=== PATIENT | female | born 1965 | race Caucasian/White ===

== ENCOUNTER 2020-07-18 09:46 | Outpatient (CLI) | payer BC, SELFPAY ==
--- NOTE | ~2020-07-18 | MM_ITS ---
EXAMINATION: MM screening [facility] w pool HISTORY: Screening mammogram TECHNIQUE: Craniocaudal and mediolateral oblique 3-D tomosynthesis images were obtained and synthetic 2-D images were generated. CAD analysis was submitted and interpreted. COMPARISON 06/14/2019, 06/08/2018, 06/01/2017 bilateral digital screening mammogram examinations: No p rior mammogram is available for comparison at this institution. BREAST PARENCHYMAL COMPOSITION: The breasts are heterogeneously dense, which may obscure small masses . FINDINGS: There is no evidence of suspicious mass, calcification, or architectural distortion to sugg est malignancy in either breast. There has been no suspicious interval change. IMPRESSION: 1. No mammographic evidence of malignancy. 2. Recommend routine screening mammography in one year. BI-RADS Category 1: Negative Reviewed, dictated and finalized at location A. ING UPHOLSTERER
== END 2020-07-18 09:47 | disposition home or self-care (01) ==
PROVIDERS: PCP Family Medicine; Visit Provider Obstetrics & Gynecology
DX: Z12.31 Encounter for screening mammogram for malignant neoplasm of breast (principal)
CPT/HCPCS: 77063; 77067

== ENCOUNTER 2020-07-24 13:35 | Outpatient (CLI) | payer BC, SELFPAY ==
--- NOTE | ~2020-07-24 | US_ITS ---
US axilla RT 07/24/2020 14:16 Indication: Palpable right axillary lump Procedure: High-resolution ultrasound of the right axilla Comparison: Screening mammogram dated 07/18/2020 Findings: Normal heterogeneous echotexture without focal solid or cystic mass. Impression: 1: Normal limited ultrasound of the right axilla. BI-RADS CATEGORY 1 - NEGATIVE Reviewed, dictated and finalized at location A. HOUSE SUPERVISOR Impression: 1: Normal limited ultrasound of the right axilla. BI-RADS CATEGORY 1 - NEGATIVE
== END 2020-07-24 13:36 | disposition home or self-care (01) ==
PROVIDERS: PCP Family Medicine; Visit Provider Advanced Practice Midwife
DX: N63.31 Unspecified lump in axillary tail of the right breast (principal)
CPT/HCPCS: 76882

== ENCOUNTER → 2020-12-24 14:54 | Outpatient (CLI) | payer BC, SELFPAY ==
--- NOTE | ~2020-12-24 | CT_ITS ---
EXAMINATION: CT abdomen wo con EXAM DATE: 12/24/2020 15:15 INDICATION: Hernia of abdomen wall w obstruction wo gangrene. Abdominal pain above the umbilicus and spasms. TECHNIQUE: Spiral CT of the abdomen was performed without contrast. Axial, coronal and sagittal charlotte ges of the abdomen were reviewed. The dose-length product (DLP) for this examination was 124.91 mGy- cm. The exposure was tailored according to patient size (auto mA exposure control), and iterative re construction (ASIR) was used as additional dose reduction technique. There is no prior study for man perry. FINDINGS: The liver, spleen, adrenal glands and pancreas are unremarkable. Gallbladder is unremarkab le. No biliary obstruction. There is no nephrolithiasis or hydronephrosis. There is no retroperi toneal lymphadenopathy. No abdominal wall defect identified (abdominal wall was imaged from the christine st to about 5 cm below the umbilicus). The stomach and small bowel are unremarkable. There is moderate amount of colonic stool. No free i ntraperitoneal gas. The heart is normal in size. There are no pericardial or pleural effusions. T he lung bases are unremarkable. Mild lumbar dextroscoliosis. IMPRESSION: 1. No hernia or acute abdominal findings. Reviewed, dictated and finalized at location A.
== END ==
PROVIDERS: PCP Family Medicine; Visit Provider Family Medicine
DX: K43.6 Other and unspecified ventral hernia with obstruction, without gangrene (principal)
CPT/HCPCS: 74150

== ENCOUNTER 2021-03-10 09:10 | Outpatient (CLI) | payer BC, SELFPAY ==
--- NOTE | 2021-03-10 11:30 | NEURO_ITS ---
Impression: # Complains of right upper extremity forearm pain waking her up at night. # Early right Carpal Tunnel Syndrome involving sensory more than motor component. # Normal needle/EMG exam. # Clinical correlation recommended. Nerve Conduction Studies Anti Sensory Summary Table Stim Site NR Peak (ms) P-T Amp (?V) Site1 Site2 Delta-P (ms) Dist (cm) Oleg (m/s) Right Median Anti Sensory (2-3nd Digit) Wrist 3.8 78.2 Wrist 2-3nd Digit 3.8 14.0 37 Wrist 3.9 57.8 Wrist 2-3nd Digit 3.8 14.0 37 Right Radial Anti Sensory (Base 1st Digit) Wrist 2.2 24.2 Wrist Base 1st Digit 2.2 0.0 Right Ulnar Anti Sensory (5th Digit) Wrist 1.9 19.7 Wrist 5th Digit 1.9 14.0 74 Motor Summary Table Stim Site NR Onset (ms) O-P Amp (mV) Site1 Site2 Delta-0 (ms) Dist (cm) Oleg (m/s) Right Median Motor (Abd Poll Brev) Wrist 3.7 8.1 Elbow Wrist 4.1 22.0 54 Elbow 7.8 6.0 Right Ulnar Motor (Abd Dig Minimi) Wrist 2.7 4.7 A Elbow Wrist 4.3 25.0 58 A Elbow 7.0 4.2 F Wave Studies NR F-Lat (ms) L-R F-Lat (ms) Right Median (Mrkrs) (Abd Poll Brev) 25.54 Right Ulnar (Mrkrs) (Abd Dig Min) 24.93 EMG Side Muscle Nerve Root Ins Act Fibs Amp Dur Recrt Comment Right 1stDorInt Ulnar C8-T1 Nml Nml Nml Nml Nml Right Ext Indicis Radial (Post Int) C7-8 Nml Nml Nml Nml Nml Right Ext Digitorum Radial (Post Int) C7-8 Nml Nml Nml Nml Nml Right BrachioRad Radial C5-6 Nml Nml Nml Nml Nml Right PronatorTeres Median C6-7 Nml Nml Nml Nml Nml Right Abd Poll Brev Median C8-T1 Nml Nml Nml Nml Nml MTDD
== END 2021-03-10 09:11 | disposition home or self-care (01) ==
PROVIDERS: PCP Family Medicine; Visit Provider Family Medicine
DX: G56.01 Carpal tunnel syndrome, right upper limb (principal)
CPT/HCPCS: 95886; 95909

== ENCOUNTER 2021-07-20 07:58 | Outpatient (CLI) | payer BC, SELFPAY ==
--- NOTE | ~2021-07-20 | MM_ITS ---
EXAMINATION: MM screening [facility] BI w pool HISTORY: Screening mammogram TECHNIQUE: Craniocaudal and mediolateral oblique 3-D tomosynthesis images were obtained and synthetic 2-D images were generated. CAD analysis was submitted and interpreted. COMPARISON: 07/18/2020, 06/14/2019, 06/08/2018 BREAST PARENCHYMAL COMPOSITION: The breasts are heterogeneously dense, which may obscure small masses . FINDINGS: There is no evidence of suspicious mass, calcification, or architectural distortion to sugg est malignancy in either breast. There has been no suspicious interval change. IMPRESSION: 1. No mammographic evidence of malignancy. 2. Recommend routine screening mammography in one year. BI-RADS Category 1: Negative Reviewed, dictated and finalized at location A. ATED MOTORMAN
== END 2021-07-20 07:59 | disposition home or self-care (01) ==
LOC: ANHIMG 08:01
PROVIDERS: PCP Family Medicine; Visit Provider Family Medicine
DX: Z12.31 Encounter for screening mammogram for malignant neoplasm of breast (principal)
CPT/HCPCS: 77063; 77067

== ENCOUNTER → 2021-10-07 12:27 | Outpatient (CLI) | payer BC, SELFPAY ==
--- NOTE | ~2021-10-07 | DEXA_ITS ---
Bone Density Report Name: ANA LAURA MATHUR Age: 56 Sex: Female Ethnicity: White Date of : 1965 Indication: postmenopausal; screening for osteoporosis; Referring Provider: Armida Casas Study: Bone densitometry was performed. Exam Date: October 07, 2021 Accession number: [id number] Bone Density: Region BMD T-score Z-score Classification AP Spine (L1-L4) 0.907 -1.3 -0.2 Osteopenia Femoral Neck (Left) 0.662 -1.7 -0.6 Osteopenia Total Hip (Left) 0.680 -2.2 -1.5 Osteopenia Femoral Neck (Right) 0.582 -2.4 -1.3 Osteopenia Total Hip (Right) 0.727 -1.8 -1.1 Osteopenia Total Hip Mean 0.704 -2.0 -1.3 Osteopenia World Health Organization criteria for BMD impression classify patients as: Normal (T-score at or above -1.0), Osteopenia (T-score between -1.0 and -2.5), or Osteoporosis (T-score at or below -2.5). 10-year Fracture Risk: FRAX not reported because: Treated for osteoporosis Clinical Information Provided by Patient: Is being treated for osteoporosis Has used the following medications: HRT (i.e. estrogen/hormone therapy), Vitamin D Patient maximum height was 61 Menopause Age: 50 Drinks caffeinated beverages Onset of menses at age 18 Number of children 3 Impression: The patient has low bone mass, based on the Right Femoral Neck T-score. Discussion: It is important to ask patients whether they are taking their medications and to encourage continued and appropriate compliance with their osteoporosis therapies to reduce fracture risk. It is also important to review their risk factors and encourage appropriate calcium and vitamin D intakes, exercise, fall prevention and other lifestyle measures. Follow-Up: Consider a repeat BMD and Vertebral Fracture Assessment (VFA) exam in 2 years or sooner if medically necessary, to reassess this patient's status. Reported by: ISIAH on 10/07/2021 12:42:00 PM. Reviewed, dictated and finalized at location AReynaldo GARCIA
== END ==
PROVIDERS: PCP Family Medicine; Visit Provider Advanced Practice Midwife
DX: M81.0 Age-related osteoporosis without current pathological fracture (principal); M85.89 Other specified disorders of bone density and structure, multiple sites
CPT/HCPCS: 77080

== ENCOUNTER → 2022-09-27 09:02 | Outpatient (CLI) | payer BC, SELFPAY ==
--- NOTE | ~2022-09-27 | MM_ITS ---
EXAMINATION: MM screening [facility] BI w pool HISTORY: Screening mammogram TECHNIQUE: Craniocaudal and mediolateral oblique 3-D tomosynthesis images were obtained and synthetic 2-D images were generated. CAD analysis was submitted and interpreted. COMPARISON: 07/16/2021, 07/18/2020, 06/14/2019 bilateral screening mammogram examinations BREAST PARENCHYMAL COMPOSITION: The breasts are extremely dense, which lowers the sensitivity of mamm ography. FINDINGS: There is no evidence of suspicious mass, calcification, or architectural distortion to sugg est malignancy in either breast. There has been no suspicious interval change. IMPRESSION: 1. No mammographic evidence of malignancy. 2. Recommend routine screening mammography in one year. BI-RADS Category 1: Negative Reviewed, dictated and finalized at location A.
== END ==
PROVIDERS: PCP Family Medicine; Visit Provider Nurse Practitioner Obstetrics & Gynecology
DX: Z12.31 Encounter for screening mammogram for malignant neoplasm of breast (principal)
CPT/HCPCS: 77063; 77067

== ENCOUNTER 2023-12-16 12:04 | Outpatient (CLI) | payer BC, SELFPAY ==
--- NOTE | ~2023-12-16 | MM_ITS ---
EXAMINATION: MM screening [facility] BI w pool HISTORY: Screening TECHNIQUE: Craniocaudal and mediolateral oblique 3-D tomosynthesis images were obtained and synthetic 2-D images were generated. CAD analysis was submitted and interpreted. COMPARISON: Comparison to multiple prior studies sequentially, with oldest reviewed study dated 11/2016. BREAST PARENCHYMAL COMPOSITION: Dense: The breasts are extremely dense, which lowers the sensitivity of mammography. FINDINGS: There is no evidence of suspicious mass, calcification, or architectural distortion to sugg est malignancy in either breast. There has been no suspicious interval change. IMPRESSION: 1. No mammographic evidence of malignancy. 2. Recommend routine screening mammography in one year. BI-RADS Category 1: Negative Reviewed, dictated and finalized at location B.
== END 2023-12-16 12:05 ==
LOC: MICIMG 12:05
PROVIDERS: PCP Nurse Practitioner Obstetrics & Gynecology; Visit Provider Nurse Practitioner Obstetrics & Gynecology
DX: Z12.31 Encounter for screening mammogram for malignant neoplasm of breast (principal)
CPT/HCPCS: 77063; 77067

== ENCOUNTER 2024-06-18 14:57 | Outpatient (CLI) | payer BC, SELFPAY ==
--- NOTE | ~2024-06-18 | US_ITS ---
Right axillary ULTRASOUND Ordering provider: Eufemia Mcclure, MANAGER OF CREATIVE SERVICES History: . Mass of axilla . Comparison: None. FINDINGS/impression: No definite abnormality seen. Reviewed, dictated and finalized at location A. WELDER
== END 2024-06-18 14:58 | disposition home or self-care (01) ==
LOC: MICIMG 14:57
PROVIDERS: PCP Nurse Practitioner Obstetrics & Gynecology; Visit Provider Nurse Practitioner Family
DX: R22.2 Localized swelling, mass and lump, trunk (principal)
CPT/HCPCS: 76882

== ENCOUNTER 2024-06-21 14:32 | Outpatient (CLI) | payer BC, SELFPAY ==
--- NOTE | ~2024-06-21 | CT_ITS ---
EXAMINATION: CT abdomen wo con DATE: 06/21/2024 15:24 INDICATION: Intra-abdominal and pelvic swelling. TECHNIQUE: Computed tomography (CT) of the abdomen was performed without intravenous contrast. Automa irish exposure control and iterative reconstruction technique were employed. The dose-length product wa s 112.18 mGy-cm. COMPARISON: CT abdomen 12/24/2020 FINDINGS: The visualized portions of the lung bases demonstrate mild atelectasis. No pleural effusion . The heart size is normal. No pericardial effusion. The liver, gallbladder, spleen, pancreas, adrena l glands, and kidneys are normal. There is no urolithiasis. There are no dilated loops of bowel. Ther e are no pathologically enlarged lymph nodes. There is no ascites. There is 13 degrees dextroscoliosi s of thoracolumbar spine. There is severe lower lumbar spondylosis. IMPRESSION: 1. No etiology for the patient's symptoms. Reviewed, dictated and finalized at location A. GER ASSURANCE
== END 2024-06-21 14:33 | disposition home or self-care (01) ==
PROVIDERS: PCP Nurse Practitioner Family; Visit Provider Nurse Practitioner Family
DX: R19.00 Intra-abdominal and pelvic swelling, mass and lump, unspecified site (principal)
CPT/HCPCS: 74150

== ENCOUNTER 2024-10-16 12:44 | Outpatient (CLI) | payer BC, SELFPAY ==
--- NOTE | ~2024-10-16 | DEXA_ITS ---
Bone Density Report Name: ANA LAURA MATHUR Age: 59 Sex: Female Ethnicity: White Date of : 1965 Indication: postmenopausal; screening for osteoporosis; height loss; Referring Provider: SOULEYMANE HIGGINBOTHAM Study: Bone densitometry was performed. Exam Date: October 16, 2024 Accession number: [id number] Bone Density: Region BMD T-score Z-score Classification AP Spine(L1-L4) 0.925 -1.1 0.2 Osteopenia Femoral Neck (Left) 0.647 -1.8 -0.6 Osteopenia Total Hip (Left) 0.675 -2.2 -1.3 Osteopenia Femoral Neck (Right) 0.562 -2.6 -1.4 Osteoporosis Total Hip (Right) 0.713 -1.9 -1.0 Osteopenia Total Hip Mean 0.694 -2.1 -1.2 Osteopenia World Health Organization criteria for BMD impression classify patients as: Normal (T-score at or above -1.0), Osteopenia (T-score between -1.0 and -2.5), or Osteoporosis (T-score at or below -2.5). 10-year Fracture Risk: FRAX not reported because: Some T-score for Spine Total or Hip Total or Femoral Neck at or below -2.5 Clinical Information Provided by Patient: Has used the following medications: HRT (i.e. estrogen/hormone therapy), Vitamin D, Calcium Patient maximum height was 62 Menopause Age: 46 Drinks caffeinated beverages Onset of menses at age 18 Number of children 3 Impression: The patient has osteoporosis, based on the Right Femoral Neck T-score. Discussion: INCREASED RISK OF FRACTURE. BONE DENSITY IS UNDESIRABLY LOW AT ONE OR MORE SKELETAL SITES, CONSISTENT WITH POSTMENOPAUSAL OSTEOPOROSIS. This patient's lowest T-score meets the World Health Organization's (WHO) criteria for osteoporosis at one or more sites (T-score -2.5 or below). In untreated patients, the risk of osteoporotic fracture increases approximately two-fold for each 1.0 SD decrease in T-score. Low bone density is not the only risk factor for fracture; also consider factors such as patient's age, frailty or poor health, risk of falling, risk of injury, previous osteoporotic fracture, family history of osteoporosis, cigarette smoking, low body weight, etc. Not everyone with low bone mineral density has osteoporosis; osteomalacia and other metabolic bone disorders should also be considered. Patients who have osteoporosis should be evaluated for specific diseases and conditions (secondary causes) that may cause or contribute to bone loss. The [place] [employer] Clinical Endocrinologists (AACE) and National Osteoporosis Foundation (NOF) recommend pharmacologic intervention for all postmenopausal women whose T-score is in this range. The patient should follow a healthful lifestyle (good nutrition with adequate calcium and vitamin D, and appropriate weight-bearing exercise). Follow-Up: Consider a repeat BMD and Vertebral Fracture Assessment (VFA) exam in 2 years or sooner if medically necessary, to reassess this patient's status. Reported by: IRMA on 10/16/2024 1:30:00 PM. Reviewed, dictated and finalized at location AReynaldo GARCIA
--- OUTSIDE RECORDS SUMMARY | 2024-10-16 14:14 | XMS_ITS | Referral Summary ---
Author Organization [facility] Address [facility] [place] [address] Care Team Providers Care Mutual Fund Accountant Name Role Phone Irma Lee MD Primary Care Provider + Irma Lee MD Unavailable Allergies No known active allergies Medications influenza quadrivalent [id number] (Flucelvax Quad , PF,) 60 mcg (15 mcg x 4)/0.5 mL syringe Flucelvax Quad [id number] (PF) 60 mcg (15 mcg x 4)/0.5 mL IM syringe Active estrogens, conjugated,-medro xyPROGESTERone (PREMPRO) 0.3-1.5 mg per tablet Prempro 0.3 mg-1.5 mg tablet Active Active Problems No known active problems Social History Tobacco Use Types Packs/Day Years Used Date Smoking Tobacco: Never Personal Safety Answer Date Recorded Getting School Help Needed Not on file 09/10 Comments Unknown Sex and Gender Information Value Date Recorded Sex Assigned at Not on file 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 Gender Identity Not on file Sexual Orientation Not on file Last Filed Vital Signs Vital Sign Reading Time Taken Comments Blood Pressure - - Pulse - - Temperature - - Respiratory Rate - - Oxygen Saturation - - Inhaled Oxygen Concentration - - Weight 47.6 kg (105 lb) 09/22/2020 9:19 AM CDT Height 157.5 cm (5' 2 ) 09/22/2020 9:19 AM CDT Body Mass Index 19.2 09/22/2020 9:19 AM CDT Plan of Treatment Not on file Insurance [email or web address] OOS Care Teams Mutual Fund Accountant Relationship Specialty Start Date End Date Irma Lee MD [address] [place] [address] PCP - General Family Medicine 07/28/20 Irma Lee MD [address] [place] [address] Family Medicine 07/28/20
--- OUTSIDE RECORDS SUMMARY | 2024-10-16 14:15 | XMS_ITS | Data Portability ---
Author Organization [facility] Address [address] [place] [address] Care Team Providers Care Associate Professor Of Automation Name Role Phone XIOMARA MIRANDA Referring Provider Assessment Encounter Date Assessment Date Assessment LastModified by Organization Details LastModified Time 09/27/2022 09/27/2022 Annual gynecological exam performed. Patient will come back in a year unless there are new symptoms. Not available 09/27/2022 09:44:36 04/13/2024 04/13/2024 Annual gynecological exam performed. Patient will come back in a year unless there are new symptoms. [email or web address] Not available 04/13/2024 09:45:27 Plan of Treatment Reminders Order Date Submit Date Provider Last Modified By Organization Details Last Modified Time Details Appointments None recorded. Lab hsv (1+2) igm, serum 2021 [facility] (Lab), [address], [place], [address], 17:07:24 hsv-1 igg Ab, serum 2021 [facility] (Lab), [address], [place], [address], 17:07:22 hsv-2 igg Ab, serum 2021 [facility] (Lab), [address], [place], [address], 12/11/202 2 17:07:23 hbcab (hepatitis B core Ab) igm, serum 2021 [facility] (Lab), [address], [place], [address], 2 17:07:23 HBsAg (hepatitis B surface Ag), serum 2021 [facility] (Lab), [address], [place], [address], 17:07:21 hepatitis C virus Ab, serum 2021 [facility] (Lab), [address], [place], [address], 17:07:21 unlisted lab - HIV 1/2 antigen/ant ibody, reflex confirmatio n 2021 [facility] (Lab), [address], [place], [address], 17:07:22 RPR (rapid plasma reagin), serum 2021 [facility] (Lab), [address], [place], [address], 17:07:23 Referral None recorded. Procedures None recorded. Surgeries None recorded. Imaging DEXA, axial skeleton + vertebral fracture assessment 2023 024 [facility], [address], [place], [address], 4 04:06:08 MAMMO, screening, bilateral 2022 023 [facility], [address], [place], [address], 3 18:39:07 DEXA, axial skeleton + vertebral fracture assessment 2022 023 [facility] , [address], [address] [place] [address], [place], [address], 3 05:01:41 Medication Orders estradiol 0.5 mg tablet 2022 023 [facility] #12523, [address], [place], [place], [id number], 3 09:56:23 Prometrium 100 mg capsule 2022 023 [facility] #21120, [address], [place], [place], [id number], 3 09:56:24 Valtrex 1 gram tablet 2021 022 [email or web address] [facility] #75558, [address], [place], [place], [id number], 4 16:45:14 estradiol 0.5 mg tablet 2021 022 [facility] #15475, [address], [place], [place], [id number], 2 10:00:15 Prometrium 100 mg capsule 2021 022 [facility] #16591, [address], [place], [place], [id number], 2 10:00:16 Premarin 0.625 mg/gram vaginal cream 2021 022 [facility] #89399, [address], [place], [id number], 3 09:45:14 estradiol 0.5 mg tablet 2021 022 [facility] #44233, [address], [place], [id number], 10:31:28 Prometrium 100 mg capsule 2021 022 [facility] #35201, [address], [place], [id number], 10:31:27 Patient TargetsNo targets recorded. Patient InstructionsNo instructions recorded. Reason for Referral None Reported. Results Created Date Observation Date Name Description Value Unit Range Abnormal Flag Note LastModifiedBy Organization Detail LastModifiedTime 11/05/19 22 11/04/2021 TSH, REFLE X FREE T4 TSH 0.52 uIU/m L 0.30-5 .33 Not Available [facility] (Lab) [address], [place], [address], 11/05/2021 03:44:52 11/05/19 22 11/04/2021 PHOSP HORUS phosphorus 3.8 mg/dL 2.5-5. 0 Not Available [facility] (Lab) [address] [place], [address], 11/05/2021 03:44:53 11/05/19 22 11/04/2021 CMP(C OMPRE HENSI VE METAB OLIC PANEL ) sodium 141 mmol/ L 133-14 6 Not Available [facility] (Lab) [address] [place], [address], 11/05/2021 03:44:53 11/05/19 22 11/04/2021 CMP(C OMPRE HENSI VE METAB OLIC PANEL ) potassium 4.3 mmol/ L 3.5-5. 1 Not Available [facility] (Lab) [address] [place], [address], 11/05/2021 03:44:53 11/05/19 22 11/04/2021 CMP(C OMPRE HENSI VE METAB OLIC PANEL ) chloride 104 mmol/ L 98-107 Not Available [facility] (Lab) [address], [place], [address], 11/05/2021 03:44:53 11/05/19 22 11/04/2021 CMP(C OMPRE HENSI VE METAB OLIC PANEL ) carbon dioxide 29 mmol/ L 21-31 Not Available [facility] (Lab) [address], [place], [address], 11/05/2021 03:44:53 11/05/19 22 11/04/2021 CMP(C OMPRE HENSI VE METAB OLIC PANEL ) anion gap 8 mmol/ L 4-13 Not Available [facility] (Lab) [address], [place], [address], 11/05/2021 03:44:53 11/05/19 22 11/04/2021 CMP(C OMPRE HENSI VE METAB OLIC PANEL ) blood urea nitrogen 15 mg/dL 7-[address] [facility] (Lab) [address], [place], [address], 11/05/2021 03:44:53 11/05/19 22 11/04/2021 CMP(C OMPRE HENSI VE METAB OLIC PANEL ) creatinine 0.89 mg/dL 0.60-1 .30 Not Available [facility] (Lab) [address], [place], [address], 11/05/2021 03:44:53 11/05/19 22 11/04/2021 CMP(C OMPRE HENSI VE METAB OLIC PANEL ) egfrcr (CKD-epi 2020) 77 mL/mi n/1.7 3_m2 >=60 Not Available [facility] (Lab) [address] [place], [address], 11/05/2021 03:44:53 11/05/19 22 11/04/2021 CMP(C OMPRE HENSI VE METAB OLIC PANEL ) calcium 9.5 mg/dL 8.3-10 .5 Not Available [facility] (Lab) [address] [place], [address], 11/05/2021 03:44:53 11/05/19 22 11/04/2021 CMP(C OMPRE HENSI VE METAB OLIC PANEL ) glucose 89 mg/dL 70-100 Not Available [facility] (Lab) [address], [place], [address], 11/05/2021 03:44:53 11/05/19 22 11/04/2021 CMP(C OMPRE HENSI VE METAB OLIC PANEL ) protein, total 6.8 g/dL 6.4-8. 3 Not Available [facility] (Lab) [address], [place], [address], 11/05/2021 03:44:53 11/05/19 22 11/04/2021 CMP(C OMPRE HENSI VE METAB OLIC PANEL ) albumin 4.0 g/dL 3.5-5. 0 Not Available [facility] (Lab) [address], [place], [address], 11/05/2021 03:44:53 11/05/19 22 11/04/2021 CMP(C OMPRE HENSI VE METAB OLIC PANEL ) ALT 13 units /L 9-43 Not Available [facility] (Lab) [address], [place], [address], 11/05/2021 03:44:53 11/05/19 22 11/04/2021 CMP(C OMPRE HENSI VE METAB OLIC PANEL ) alkaline phosphatase 103 units /L 34-104 Not Available [facility] (Lab) [address], [place], [address], 11/05/2021 03:44:53 11/05/19 22 11/04/2021 CMP(C OMPRE HENSI VE METAB OLIC PANEL ) AST 19 units /L 13-39 Not Available [facility] (Lab) [address] [place], [address], 11/05/2021 03:44:53 11/05/19 22 11/04/2021 CMP(C OMPRE HENSI VE METAB OLIC PANEL ) bilirubin, total 0.6 mg/dL 0.2-1. 2 Not Available [facility] (Lab) [address], [place], [address], 11/05/2021 03:44:53 11/05/19 22 11/04/2021 CBC W/DIF F WBC 6.0 10'3/ uL 3.6-10 .2 Not Available [facility] (Lab) [address], [place], [address], 11/05/2021 03:44:54 11/05/19 22 11/04/2021 CBC W/DIF F RBC 4.10 10'6/ uL (based on docume nted legal sex) 4.10-5 .30 Not Available [facility] (Lab) [address], [place], [address], 11/05/2021 03:44:54 11/05/19 22 11/04/2021 CBC W/DIF F HGB 12.9 g/dL (based on docume nted legal sex) 11.9-1 5.8 Not Available [facility] (Lab) [address], [place], [address], 11/05/2021 03:44:54 11/05/19 22 11/04/2021 CBC W/DIF F HCT 38.6 % (based on docume nted legal sex) 37.4-4 8.3 Not Available [facility] (Lab) [address], [place], [address], 11/05/2021 03:44:54 11/05/19 22 11/04/2021 CBC W/DIF F MCV 95.0 fL 82.0-9 9.0 Not Available [facility] (Lab) [address], [place], [address], 11/05/2021 03:44:54 11/05/19 22 11/04/2021 CBC W/DIF F MCH 32.0 pg 27.0-3 3.0 Not Available [facility] (Lab) [address], [place], [address], 11/05/2021 03:44:54 11/05/19 22 11/04/2021 CBC W/DIF F MCHC 33.0 g/dL 32.0-3 6.0 Not Available [facility] (Lab) [address], [place], [address], 11/05/2021 03:44:54 11/05/19 22 11/04/2021 CBC W/DIF F RDW 11.0 % 11.0-1 5.0 Not Available [facility] (Lab) [address], [place], [address], 11/05/2021 03:44:54 11/05/19 22 11/04/2021 CBC W/DIF F plt 219 10'3/ uL 150-45 0 Not Available [facility] (Lab) [address], [place], [address], 11/05/2021 03:44:54 11/05/19 22 11/04/2021 CBC W/DIF F MPV 12.0 fL 9.8-12 .7 Not Available [facility] (Lab) [address], [place], [address], 11/05/2021 03:44:54 11/05/19 22 11/04/2021 CBC W/DIF F NRBC's 0.00 % 0 Not Available [facility] (Lab) [address], [place], [address], 11/05/2021 03:44:54 11/05/19 22 11/04/2021 CBC W/DIF F absolute NRBCs 0.0 10'3/ uL 0 Not Available [facility] (Lab) [address] [place], [address], 11/05/2021 03:44:54 11/05/19 22 11/04/2021 CBC W/DIF F neutrophils 64.0 % 37.0-7 2.0 Not Available [facility] (Lab) [address] , [place], [address], 11/05/2021 03:44:54 11/05/19 22 11/04/2021 CBC W/DIF F lymphocytes 26.0 % 16.0-4 8.0 Not Available [facility] (Lab) [address] [place], [address], 11/05/2021 03:44:54 11/05/19 22 11/04/2021 CBC W/DIF F monocytes 8.0 % 4.0-14 .0 Not Available [facility] (Lab) [address], [place], [address], 11/05/2021 03:44:54 11/05/19 22 11/04/2021 CBC W/DIF F eosinophils 1.0 % 0.0-9. 0 Not Available [facility] (Lab) [address], [place], [address], 11/05/2021 03:44:54 11/05/19 22 11/04/2021 CBC W/DIF F basophils 1.0 % 0.0-2. 0 Not Available [facility] (Lab) [address], [place], [address], 11/05/2021 03:44:54 11/05/19 22 11/04/2021 CBC W/DIF F immature granulocytes 0.0 % no define d refere nce range Not Available [facility] (Lab) [address], [place], [address], 11/05/2021 03:44:54 11/05/19 22 11/04/2021 CBC W/DIF F absolute neutrophils 3.8 10'3/ uL 1.1-6. 0 Not Available [facility] (Lab) [address] [place], [address], 11/05/2021 03:44:54 11/05/19 22 11/04/2021 CBC W/DIF F absolute lymphocytes 1.5 10'3/ uL 0.7-3. 4 Not Available [facility] (Lab) [address], [place], [address], 11/05/2021 03:44:54 11/05/19 22 11/04/2021 CBC W/DIF F absolute monocytes 0.5 10'3/ uL 0.3-1. 0 Not Available [facility] (Lab) [address], [place], [address], 11/05/2021 03:44:54 11/05/19 22 11/04/2021 CBC W/DIF F absolute eosinophils 0.1 10'3/ uL 0.0-0. 6 Not Available [facility] (Lab) [address], [place], [address], 11/05/2021 03:44:54 11/05/19 22 11/04/2021 CBC W/DIF F absolute basophils 0.1 10'3/ uL 0.0-0. 1 Not Available [facility] (Lab) [address] [place], [address], 11/05/2021 03:44:54 11/05/19 22 11/04/2021 CBC W/DIF F absolute immature granulocytes 0.00 10'3/ uL 0.00-0 .10 2021 2:21 AM: P indic ates parti al resul ts on a panel have been relea sed. Addit ional resul ts will follo w. 2021 2:21 AM: This resul t has been final verif ied. No addit ional or cary ed resul ts are expec camelia. Not Available [facility] (Lab) [address] [place], [address], 11/05/2021 03:44:54 11/05/19 22 11/04/2021 VITAM IN D, 25-OH (TOTA L D2/D3 ) vitamin D, 25-hydroxy, total 53.3 NG/mL 30-80 NOTE: Defic iency : <20 ng/mL Insuf ficie ncy: 20-29 ng/mL Optim um Level : 30-80 ng/mL Possi ble Toxic ity: >80 ng/mL Most patie nts with toxic ity have level s >150 ng/mL . Not Available [facility] (Lab) [address], [place], [address], 11/05/2021 03:44:54 06/01/20 22 06/01/2022 HEPAT ITIS B SURFA CE ANTIG EN hepatitis B surface antigen Non-re active non-re active This assay was perfo rmed using [employer] ratio n reage nts and test kits. Value s obtai [place] with other assay metho ds or kits canno t be used inter cary eably . Not Available [facility] (Lab) [address], [place], [address], 06/06/2022 17:07:21 06/01/20 22 06/01/2022 HEPAT ITIS C ANTIB EVELIN SCREE N, REFLE X TO CONFI RMATI ON hepatitis C antibody Non-re active non-re active Antib odies to HCV Not Detec camelia, does not exclu de the possi bilit y of expos ure to HCV. Not Available [facility] (Lab) [address], [place], [address], 06/06/2022 17:07:21 06/01/20 22 06/01/2022 HIV 1/2 ANTIG EN/AN TIBOD Y, REFLE X CONFI RMATI ON HIV antigen/anti body Nonrea ctive nonrea ctive HIV-1 antig en and HIV-1 /HIV- 2 antib odies were not detec camelia. No labor atory evide nce of HIV infec tion. Not Available [facility] (Lab) [address], [place], [address], 06/06/2022 17:07:22 06/01/20 22 06/01/2022 HERPE S SMPLE X VIRUS TYPE 1 SPECI FIC AB, IGG herpes simplex virus 1 IgG Positi ve negati ve abnormal Not Available [facility] (Lab) [address], [place], [address], 06/06/2022 17:07:22 06/01/20 22 06/01/2022 HERPE S SMPLE X VIRUS TYPE 1 SPECI FIC AB, IGG herpes simplex virus 1 IgG, quant 5.4 ai 0.0-0. 8 high Not Available [facility] (Lab) [address], [place], [address], 06/06/2022 17:07:22 06/01/20 22 06/01/2022 HERPE S SIMPL EX VIRUS TYPE 2 SPECI FIC AB, IGG herpes simplex virus 2 IgG Negati ve negati ve Not Available [facility] (Lab) [address], [place], [address], 06/06/2022 17:07:23 06/01/20 22 06/01/2022 HERPE S SIMPL EX VIRUS TYPE 2 SPECI FIC AB, IGG herpes simples virus 2 IgG, quant <0.2 ai 0.0-0. 8 Not Available [facility] (Lab) [address], [place], [address], 06/06/2022 17:07:23 06/01/20 22 06/01/2022 RPR SCREE N/REF NIA TITER /FTA RPR screen Nonrea ctive nonrea ctive Not Available [facility] (Lab) [address], [place], [address], 06/06/2022 17:07:23 06/01/20 22 06/01/2022 HEPAT ITIS B CORE, IGM hepatitis B core IgM antibody Negati ve negati ve Not Available [facility] (Lab) [address] [place], [address], 06/06/2022 17:07:23 06/01/20 22 06/01/2022 HERPE S SIMPL EX VIRUS , 1 AND 2 IGM, IFA hsv 1 IgM screen NEGATI VE Not Available [facility] (Lab) [address], [place], [address], 06/06/2022 17:07:24 06/01/20 22 06/01/2022 HERPE S SIMPL EX VIRUS , 1 AND 2 IGM, IFA hsv 2 IgM screen NEGATI VE REFER ENCE RANGE : NEGAT SHEMAR HSV IgM is detec table in serum from >90% of patie nts with prima ry HSV infec tion. Howev er, HSV IgM canno t be relia maddie used to diagn ose acute /rece nt infec tion as it is also found in 30% of patie nts with react ivate d HSV. This test may not disti nguis h betwe en HSV-1 IgM and HSV-2 IgM due to cross -reac tivit y. To diagn ose acute genit al or mucos al HSV infec tion, direc t detec tion from a lesio n by cultu re or sera michaels ds is prefe rred. HSV IgM posit ivity shoul d be confi rmed by HSV-1 /2 type- speci fic IgG testi ng. This test was devel oped and its fei tical perfo rmanc e jose cteri stics have been deter mined by [facility]. It has not been clear ed or appro hardik by FDA. This assay has been valid ated pursu ant to the CLIA regul ation s and is used for clini joseluis purpo ses. Perfo rming Organ izati on Infor matgunnar n: Site ID: [id number] Name: [facility] [place] , Addre ss: [id number] [place] [address] Direc tor: Carolina troy MD,Ph D,MARCY Not Available [facility] (Lab) [address], [place], [address], 06/06/2022 17:07:24 06/01/20 22 06/01/2022 CT/GC AND TRICH OMONA S VAGIN SANCHEZ (RRNA ), URINE chlamydia trachomatis, PCR Negati ve negati ve Not Available [facility] (Lab) [address], [place], [address], 06/07/2022 22:07:36 06/01/20 22 06/01/2022 CT/GC AND TRICH OMONA S VAGIN SANCHEZ (RRNA ), URINE neisseria gonorrhoeae, PCR Negati ve negati ve Not Available [facility] (Lab) [address], [place], [address], 06/07/2022 22:07:36 06/01/20 22 06/01/2022 CT/GC AND TRICH OMONA S VAGIN SANCHEZ (RRNA ), URINE trichomonas vaginalis ribosomal RNA (rrna) Negati ve negati ve Not Available [facility] (Lab) [address], [place], [address], 06/07/2022 22:07:36 06/01/20 22 06/01/2022 CULTU RE: HERPE S SIMPL EX VIRUS (HSV) , REFLE X TYPIN G source FLEX SWAB Not Available [facility] (Lab) [address], [place], [address], 06/07/2022 22:07:37 06/01/20 22 06/01/2022 CULTU RE: HERPE S SIMPL EX VIRUS (HSV) , REFLE X TYPIN G hsv culture, body fluid NOT ISOLAT ED REFER ENCE RANGE : NOT ISOLA CAMELIA Perfo rming Organ izati on Infor matio n: Site ID: [id number] Name: [facility]ro [facility] [place] , Addre ss: [id number] [facility] [place] [address] Direc tor: Carolina troy MD,Ph D,MARCY Not Available [facility] (Lab) [address], [place], [address], 06/07/2022 22:07:37 04/13/20 24 04/13/2024 IMAGE GUIDE D PAP AND HPV REGAR DLESS image guided Pap, HPV regardless of Pap result SEE RESULT S BELOW CASE REPOR T: Cytol ogy Gynec ologi joseluis Repor t Case: [id number] Autho farheen delgado Provi roro: Yessica Larson MD Colle cted: 04/13 1018 Order ing Locat ion: [place] [facility] Recei hardik: 04/16 0743 First Scree n: Anjel [place], CT Speci men: Lakhwinder vinod Pap - Image d, Cervi x STATE MENT OF ADEQU ACY: Satis facto ry for evalu ation Trans forma tion zone compo nent absen t ----- ----- ----- ----- ----- ----- ----- ----- ----- ----- ----- ----- ----- ----- ----- ----- ----- ---- FINAL DIAGN OSIS: Negat shemar for Intra epith elial Lesio n or Curly corrales (NIL) . Elect madeline puga d by Anjel [place], CT on 04/19 at 2:32 PM ----- ----- ----- ----- ----- ----- ----- ----- ----- ----- ----- ----- ----- ----- ----- ----- ----- ---- HPV RESUL TS: HPV mRNA E6/E7 : No HPV mRNA Detec camelia NOTE: This high risk HPV mRNA assay detec ts fourt een high- risk HPV types (16, 18, 31, 33, 35, 39, 45, 51, 52, 56, 58, 59, 66, 68) witho ut diffe renti ation . COMME NT: Slide scree [place] manulaura lly due to rejec tion by the Thinp rep Imagi ng Syste m. CLINI JOSELUIS INFOR MATIO N: Menst rual Statu s: LMP (if appli cable ): Clini joseluis Histo ry/Pr eviou s Pap: Type of Neopl candace (if appli cable ): Signi fican t Clini joseluis Findi ngs: Other Histo ry: Hormo shanta (if appli cable ): PAP EDUCA WENDIE L NOTE: The Pap Test is a scree vinod test with an inher ent false negat shemar rate. Liqui d-bas ed sampl ing may decre ase, but will not elimi reji, false negat shemar resul ts. A negat shemar resul t does not precl ude the prese nce and/o r devel opmen t of disea se, since the prese nce of abnor mal cells in the sampl e depen ds on the locat ion of the lesio n and sampl ing techn ique. Doyle nued regul ar scree vinod is the best metho d of cance r preve ntion . If repor camelia cytol ogic findi ng do not corre late with physi joseluis and/o r histo rical findi ngs, furth er inves tigat ion is recom tom d, as clini danitza warra nted. Not Available [facility] (Lab) [address], [place], [address], 04/19/2024 15:36:11 09/28/19 23 09/27/2022 MAMMO , scree vinod, bilat eral No observ ation record ed. [facility] [address], [place], [address], 04/23/2024 15:11:20 12/16/19 24 12/16/2023 MAMMO , scree vinod, bilat eral No observ ation record ed. [facility] [address], [place], [address], 04/23/2024 15:11:20 Result Notes None recorded. Problems Name Problem SNOMED Code Status Onset Date Resolution Date Notes Provider Name and Address Organization Details Recorded Time SNOMED CT Concept Completed 201607/18/2020 Encntr for general adult medical exam w/o abnormal findings ;Practic e ID: [id number] Filomena winkler, [facility] 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 11:48:58 Superfic ial pain on intercou rse [id number] Completed 201807/18/2020 Superfic ial (introit al) dyspareu anastasiya;Prac malcom ID: 0001 Filomena Cárdenas [facility] 11:49:05 Evaluati on finding Completed 201807/18/2020 Hematuri a, unspecif ied;Prac malcom ID: [id number] Filomena winkler, [facility] 11:48:45 Screenin g for malignan t neoplasm of rectum Completed 201807/18/2020 Encounte r for screenin g for malignan t neoplasm of rectum;P ractice ID: 0001 Filomena Cárdenas [facility] 11:48:55 Screenin g for malignan t neoplasm of cervix Completed 201107/18/2020 Pap Smear;Pr actice ID: 0001 Filomena Cárdenas [facility] 11:49:10 Cytologi c finding [id number] Completed 201107/18/2020 Pap Abnormal LGSIL;Pr actice ID: 0001 Filomena winkler [facility] 11:48:43 Pregnanc y test negative [id number] Completed 201107/18/2020 Negative Pregnanc y Test;Pra ctice ID: [id number] Filomena Cárdenas [facility] 11:49:12 Speciali zed medical examinat ion Completed 201207/18/2020 Routine gynecolo gical examinat ion;Prac malcom ID: [id number] Filomena winkler [facility] 11:49:01 Menopaus al symptom [id number] Completed 201307/18/2020 Menopaus al or female climacte gloria states;P ractice ID: 0001 Filomena Cárdenas [facility] 11:48:50 Adult health examinat ion Completed 201307/18/2020 Routine general medical examinat ion at a health care facility ;Practic e ID: 0001 Filomena Cárdenas [facility] 11:49:14 Irregula r periods [id number] Completed 201307/18/2020 Irregula r menstrua l cycle;Pr actice ID: [id number] Filomena Cárdenas [facility] 11:48:47 Speciali zed medical examinat ion Completed 201110/10/2012 Gynecolo gical Examinat ion;Chalo rded Elsewher e: No Locat ion: [facility] S ource: [employer] Operator isidro: N Practi ce ID: 0001 Gerard lable Time: 03:00:00 PM Filomena Cárdenas [facility] 11:49:01 Cervicov aginal cytology : Low grade squamous intraepi thelial lesion [id number] Completed 201111/25/2021 Reyna Ambrose [facility] 2 09:43:47 Problem Notes None recorded. Procedures Surgical History Date Name Laterality Status Provider Name and Address Organization Details Recorded Time 10/08/19 Date of Last Pap Smear completed KIET AGOSTO [facility] 02/16/2022 09:57:00 06/27/19 17 completed [facility] 07/18/2020 11:44:17 06/27/19 17 Date of Last Colonoscopy completed [facility] 07/17/2021 14:12:38 04/14/20 12 Colposcopy completed [facility] 07/17/2021 14:14:28 04/05/20 12 Colposcopy completed [facility] 07/17/2021 14:11:43 02/26/19 98 section completed [facility] 07/18/2020 12:11:12 06/27/18 98 Tubal Ligation completed [facility] 07/18/2020 12:11:38 12/26/18 94 section completed [facility] 07/18/2020 12:11:20 10/02/18 91 section completed [facility] 07/18/2020 12:11:29 Imaging Results Imaging Date Name Status LastModified by Organiz ation Details LastModified Time 09/27/2022 MAMMO, screening, bilateral completed [facility] [address], [place], [address], 04/23/2024 15:11:20 12/16/2023 MAMMO, screening, bilateral completed [facility] [address], [place], [address], 04/23/2024 15:11:20 Procedure Notes None recorded. Medical Equipment None Reported. Allergies No known drug allergies Medications Name Sig Start Date Stop Date Status Note LastModified by Organization Details LastModified Time azithromy rody 250 mg tablet active Not Available Not Available No t Available benzonata te 200 mg capsule 09/27 completed Not Available Not Available Not Available valacyclo vir 1 gram tablet Take 1 tablet every 12 hours by oral route for 7 days. 04/12 completed Not Available Not Available Not Available prednison e 20 mg tablet 09/27 completed Not Available Not Available Not Available diclofena c sodium 75 mg tablet,de layed release 09/27 completed Not Available Not Available Not Available estradiol 0.5 mg tablet Take 1 tablet every day by oral route for 90 days. active Not Available Not Available No t Available estradiol 0.01% (0.1 mg/gram) vaginal cream Insert 1 Gram vaginall y three times a week active Not Available Not Available No t Available progester one micronize d 100 mg capsule TAKE 1 CAPSULE BY MOUTH ONCE DAILY active Not Available Not Available No t Available Premarin 0.625 mg/gram vaginal cream Insert 0.5gm per vagina at bedtime x 14days then, Use twice a wk for maintena nce. 02/16 completed Not Available Not Available Not Available Vitamin D3 10 mcg (400 unit) capsule 07/17 completed Prescrib ed Elsewher e: Yes Loca tion: [facility] By: lou cueto DateTime : 10/11/19 13 08:15:00 AM Not Available Not Available Not Available Multi Vitamin 9 mg iron/15 mL oral liquid 07/17 completed Prescrib ed Elsewher e: Yes Loca tion: [facility] By: [email or web address] trick En counter DateTime : 05/06/20 14 04:00:00 PM Not Available Not Available Not Available Osphena 60 mg tablet take 1 tablet by oral route every day with food 06/21 completed Prescrib ed Elsewher e: No Locat ion: [facility] By: sofía cueto DateTime : 06/15/20 19 03:24:57 PM Not Available Not Available Not Available Estroven 155 mg capsule 07/20 completed Not Available Not Available Not Available Vitals Date Recorded Body height Body mass index (BMI) Body weight Systolic blood pressure Diastolic blood pressure Provider Name and Address Organization Details Last Updated DateTime 02/16/2022 157.48 cm 19.6 kg/m2 01802.38 g 110 mm[Hg] 76 mm[Hg] KIET AGOSTO [facility] 2 09:56:27 Date Recorded Body height Body mass index (BMI) Body weight Systolic blood pressure Diastolic blood pressure Provider Name and Address Organization Details Last Updated DateTime 06/01/2022 157.48 cm 19.6 kg/m2 69915.38 g 123 mm[Hg] 74 mm[Hg] Ely Oliva [facility] 2 16:18:42 Date Recorded Body height Body mass index (BMI) Body weight Systolic blood pressure Diastolic blood pressure Provider Name and Address Organization Details Last Updated DateTime 09/27/2022 157.48 cm 19.3 kg/m2 14819.64 g 102 mm[Hg] 64 mm[Hg] Reyna Marc [facility] 3 09:44:55 Date Recorded Body height Body mass index (BMI) Body weight Systolic blood pressure Diastolic blood pressure Provider Name and Address Organization Details Last Updated DateTime 04/13/2024 157.48 cm 19 kg/m2 33210.61 g 121 mm[Hg] 52 mm[Hg] Patricia Agosto [facility] 4 09:52:36 Social History Question Answer Notes LastModified by Organizat ion Details LastModified Time Tobacco Smoking Status Never Smoker Filomena winkler, [facility] 07/18/2020 12:09:30 What Is Your Level Of Alcohol Consumption? None [email or web address] Information not available 07/18/2020 If You Are , What Was Your Level Of Alcohol Consumption Prior To ? None [email or web address] Information not available 07/18/2020 Are You Blind Or Do You Have Difficulty Seeing? No Information not available 09/27/2022 In The 14 Days Before Symptom Onset, Have You Had Close Contact With A Laboratory-confir [facility] COVID-19 While That Case Was Ill? No [email or web address] Information not available 04/13/2024 In The 14 Days Before Symptom Onset, Have You Had Close Contact With A Person Who Is Under Investigation For COVID-19 While That Person Was Ill? No [email or web address] Information not available 04/13/2024 Have You Been To An Area Known To Be High Risk For COVID-19? No [email or web address] Information not available 04/13/2024 Are You Deaf Or Do You Have Serious Difficulty Hearing? No Information not available 09/27/2022 Which Illicit Or Recreational Drugs Have You Used? Non Information not available 07/18/2020 Do You Or Have You Ever Used E-cigarettes Or Vape? Never Used Electronic Cigarettes [email or web address] Information not available 07/18/2020 What Was The Date Of Your Most Recent Tobacco Screening? 07/18/2020 [email or web address] Information not available 07/18/2020 Do You Or Have You Ever Used Smokeless Tobacco? Never Used Smokeless Tobacco [email or web address] Information not available 07/18/2020 How Much Tobacco Do You Smoke? No Information not available 07/18/2020 Sex: Unknown Functional Status Question Answer Note LastModified by Organizat ion Details LastModified Time Do you have difficulty walking or climbing stairs? No Information not available 09/27/2022 Are you able to walk? [email or web address] Information not available 09/27/2022 Are you able to care for yourself? Yes Information not available 09/27/2022 Do you have difficulty dressing or bathing? No Information not available 09/27/2022 What is your exercise level? Heavy [email or web address] Information not available 07/18/2020 Mental Status None recorded. Family History Relationship Description Onset Age of this Age Resolved Age Notes LastModified by Organization Details LastModified Time Father Malignant tumor of colon [email or web address] Not available 07/18 11:45:42 Medical History Condition Response Arthritis Y History of abnormal pap Y Gynecological History Statement/Question Response Abnormal Pap Yes Date of Last Mammogram Date of LMP 06/27/2017 On BCP's at Conception? N Was last menstrual period normal N STIs/STDs N HPV Vaccine N Colposcopy 04/05/2012 Current Control Method Tubal Ligat ion Age at First Child 25 If Post Menopausal, Age at Menopause 51 Are cycles usually normal N Date of Last Colonoscopy 06/27/2016 Sexually Active? N Menses Monthly N Date of DEXA bone scan 10/07/2021 Age of first menstrual cycle 16 Date of Last Pap Smear 10/07/2021 Sexual Problems? N LMP Definite 06/27/2016 06/27/2011 Obstetrics History GPAL:G 4 P 3 0 1 3 Type Value Full Term 3 Spontaneous 1 Living 3 Total 4 Past Encounters Encounter ID Performer Location Encounter Start Date Encounter Closed Date Diagnosis/Indication Diagnosis SNOMED-CT Code Diagnosis ICD10 Code [id number] [address],[facility] [place] [address] 07/18/2020 11:37:36 07/18/2020 12:36:06 Vaginal dryness 65639033 N89.8 Gynecologi c examination 53909201 Z01.419 [id number] Armida Casas [place] [address],[facility] [place] [address] 07/20/2021 09:22:13 07/20/2021 10:25:22 Gynecologic examination 59879120 Z01.419 Z11.51 Take Calcium with Vitamin D 12-1500mg daily. Do monthly self breast exams. It is advised to get annual flu shot in the fall and she could obtain at [facility] or [facility] care clinic. If you haven't received the Tdap vaccine in the last 10 years you should obtain one as well. Have mammogram yearly, bone density every 2-3 years and colonoscop y every 5-10 years depending on findings and history. Mammogram done today. Order given for bone density. Engage in daily exercise of low impact aerobic exercise 45-60 minutes 4-5 times weekly. Avoid tobacco and illicit drugs as well as using moderation with alcohol intake less than 1-2 8 oz beverages daily. This lifestyle behavior pattern will lead to less health conditions and longer life span. If BMI greater than 25 weight watchers or dietary consult advised. Questions have been answered. Patient appears to understand instructio ns, but if you have any further questions call or respond to this email. [id number] [facility] [address] [address] 10/07/2021 14:00:45 10/07/2021 14:48:47 Specimen unsatisfactory for evaluation [id number] R85.615 R/P pap/hpv testing obtained due to unsatisfac tory specimen.W ill contact with results. Time spent in visit is a total of 15 mins with at least 50% of visit consisting of counseling and review of plan of care. [id number] Akila Yarbrough [facility] [address] [address] 11/25/2021 09:56:18 11/25/2021 13:30:41 Postmenopausal osteopenia 899050472 N95.1 Discussed bone health recommenda tions after reviewing Dexa scan.Yevgeniy billy Hx reviewed & updated Opts to trial HRT therapy E/P & repeat Dexa in 2yrsContin ue exercise regimen, davin D, calcium, Labs are WNL. Also has some hot flashes/ni ght sweats: We discussed Menopausal Hormone therapy (MHT) for women with intact uterus with the goals of reliving vaso-motor sx's using estrogen/p rogestin therapy (EPT) using lowest doses for shortest duration in women 40-59yo. Contraindi cations include: Hx of DVT or thrombolic events, High cholestero l, Hx of breast cancer, known CHD, active liver disease, unexplaine d vag bleeding, high risk endometria l cancer, TIA. Side effects can include but are not limited to: Irregular vag bleeding,, breast tenderness , nausea, weight changes, libido changes, nausea. Adverse Rxn: Elevated BP migraine w/ visual changes, breast cancer dx, OK/stroke, DVT/PE, Endometria l cancer. Please contact office with any new or worsening side effects or adverse reactions. Or if a medical emergency please go to nearest ED/U[facility]ency care for further evaluation . Dyspareunia [id number] N94 .10 Previously reviewed issues with vaginal dryness during sex.Opts to pursue this therapy Counseled on medication R/B's, Most common side effects, & use. All questions were answered to patient satisfacti on. Continue VCG s as well. RTO after February 12 when she is back from [place] (Taking care of her sick mother). [id number] Akila Yarbrough [facility] [address],[place] [address] 02/16/2022 09:45:00 02/16/2022 10:15:38 Postmenopausal osteopenia 533841422 N95.1 Patient is here today for a medicaton check of hrt. She voices goals of therapy have been met with use of this therapy. She denies neg side effects. She is eating, drinking, sleeping well; moods are stable & neg AUB. Wishes to continue this method of HRT. Appropriat e to continue this medication .We will repeat her Dexa in 2yrs. Time spent in visit is a total of 15 mins with at least 50% of visit consisting of counseling and review of plan of care. [id number] Zoie Quezada [facility] [address],[place] [address] 06/01/2022 15:54:45 06/01/2022 16:53:45 Genital herpes simplex 50755836 A60.9 Highly suspect primary genital HSV lesions. Blister like appearance and tender to touch, located in vaginal opening.HS V PCR sentHSV discussed in-depth with patientGC/ CT/Trich testing sentBlood STI panel orderedRx sent for valtrex, R/B of medication discussed and accepted by patientCan use OTC lidocaine cream to lesions TID as needed until resolvedNo IC with active outbreaksW ill update patient with results when available, to notify office of any worsening symptomsRT C for WWE in June Time spent in visit is a total of 30 mins with at least 50% of visit consisting of counseling and review of plan of care. Venereal d isease screening 310691444 Z11.3 Sexually t ransmitted infectious disease 6421759 A64 [id number] Akila Yarbrough [facility] [address],[place] [address] 09/27/2022 09:31:04 09/27/2022 09:59:38 Gynecologic examination 26687050 Z01.419 Z11.51 Take Calcium with Vitamin D 12-1500mg daily. Do monthly self breast exams. It is advised to get annual flu shot in the fall and she could obtain at [facility] or [facility]. If you haven't received the Tdap vaccine in the last 10 years you should obtain one as well. Have mammogram yearly, bone density every 2-3 years and colonoscop y every 5-10 years depending on findings and history. Engage in daily exercise of low impact aerobic exercise 45-60 minutes 4-5 times weekly. Avoid tobacco and illicit drugs as well as using moderation with alcohol intake less than 1-2 8 oz beverages daily. This lifestyle behavior pattern will lead to less health conditions and longer life span. If BMI greater than 25 weight watchers or dietary consult advised. Questions have been answered. Patient appears to understand instructio ns, but if you have any further questions call or respond to this email Pap/hpv q3yrs per asccp unless otherwise indicatedS TD Screen declinedGe netic Screen discussedC olon Screen UTD PCPDexa Screen orderedRou scotty Labs UTD PCPMammo- ordered Screening mammography 24 061057 Z12.31 Postmenopa usal osteopenia 937608924 N95.1 Due for r/p imaging. Menopausal symptom 67219 002 N95.1 Counseled on the following: Females >10yrs past menopause (& age 60yo+) are generally not good candidates for starting (1st use) systemic HT. Decisions to continue systemic HT > a decade past menopause (or past age 60yo) requires balancing R/B's; & individual ized needs. Non-hormon al options may be more appropriat e for females >10yrs past menopause. [id number] SOULEYMANE HIGGINBOTHAM MD [place] [address] [address] 04/13/2024 09:41:40 04/13/2024 10:38:03 Postmenopausal osteopenia 404626812 M85.80 - hx of osteopenia in 2021 Gynecologi c examination 20200217 Z01.419 Z11.51 Well woman care- Cervical cancer screening: Pap smear obtained today, will follow up on the results with the patient as they become available- Breast cancer screening: mammogram completed- HPV immunizati on: does not qualify- STD testing: declined- hereditary cancer screening: qualifies for testing Abnormal v asomotor function 28458528 I73.89 - has been taking estradiol 0.5mg and progestero ne 100mg daily for VMS- no further symptoms at this time- will wean off estradiol and monitor for increased symptoms Health Concerns Section Related Observation LastModified by Organization Detai ls LastModified Time None Recorded Concern Status LastModified by Organization Details LastModified Time None Recorded Advance Directives Directive None Recorded Payers Encounter Date Sequence Insurance Name Policy Number Policy Brito Covered Member ID Brito Member ID Guarantor Name 11/25/2021 1 [place] [id number] Yuki T Carantza Valentni [id number] 25 Yuki T Carantza 02/16/2022 1 [place] [id number] Yuki T Carantza Valentin [id number] 25 Yuki T Carantza 06/01/2022 1 [place] [id number] Yuki T Carantza Valentin [id number] 25 Yuki T Carantza 09/27/2022 1 [place] [id number] Yuki T Carantza Valentin [id number] 25 Yuki T Carantza 04/13/2024 1 [place] [id number] Yuki T Carantza Valentin [id number] 25 Yuki T Carantza Notes Date Note Type Note Provider Name and Address Organization Details Recorded Time 11/25/2021 text/html Today we discuss ed possible bone health recommendations after reviewing Dexa. Phone Consent: This visit was completed via Virtual Visit Zoom due to the restrictions of the COVID-19 pandemic; all issues as below were discussed and addressed but no physical exam was performed. If it was felt that the patient should be evaluated in clinic then they were directed there. The patient verbally consented to this virtual Zoom visit. [facility] [address], [place], [address], [facility] 11/25/2021 13:20:31 02/16/2022 text/html Here today for medication check. [facility] [address], [place], [address], [facility] 02/16/2022 10:42:50 06/01/2022 text/html 57yo Presents fo r evaluation of vaginal sores, noticed over the weekend. Sores are very painful, hurts when urinating and wiping.Denies any vaginal itching, discharge, pelvic pain, fevers, flu-like symptoms, or vaginal odor.SA with husbandOn HRT, no longer using premarin vaginal cream NBA Butler [address], [place], [address], [facility] 06/01/2022 16:49:40 09/27/2022 text/html Annual Communications Operator Post-MenopausalRepor camelia bypatient.Menopausal Symptoms:no menopausal symptoms; normal vaginal lubrication Vaginal Bleeding:history of menopause having occurred; no history of post menopausal bleeding Urinary Symptoms:no hematuria; no incontinence; no nocturia; no urinary frequency Vulva:no genital lesion; no vulvar atrophy Vagina:normal vaginal discharge; no vaginal atrophy Breast:no breast lump; no nipple discharge; no breast pain Sexual Complaints:no sexual complaints Psychological Symptoms:no depression; no anxiety Preventive Measures:encourage regular mammograms starting age 40; encourage self breast examination; encourage regular exercise; encourage no tobacco use; needs to schedule mammogram; history of recent colonoscopy; needs to schedule bone density NBA De Leon- [address], [place], [address], [facility] 09/27/2022 09:58:56 04/13/2024 text/html Presents today f or her annual well-woman exam.Denies abnormal vaginal discharge. She is sexually active and denies dyspareunia. She has not noticed any changes or masses in her breasts. Up to date on mammograms. Menopausal, no PMB. No hx of abnormal pap smears. Currently on HRT, would like to d/c. Not having any menopausal symptoms currently. Does report vaginal dryness, not improved with oral HRT. Has not tried other treatment options. SOULEYMANE HIGGINBOTHAM MD [address], [place], [address], [facility] 04/13/2024 10:36:48 OBGyn Episode Ob Episode Information Episode Created Date Number of Fetuses Patient Bloodtype Patient rh Status Prepregnancy Weight lbs Domestic Partner Domestic Partner Phone Father Name Cleaning Attendant Status 07/18/19 21 1 CLOSED Fetus Data First Name Last Name Admitted to NICU Weight (g) Sex Living Outcome Pediatric Complications Fetus ID Race Codes Race Delivery Type 2267.96 F Full Term 7368 Repeat Qamar Calculation Initial Qamar Date Initial Exam Date Initial Exam Provider Initial Ultrasound Date Last Menstrual Period Date Ultra Sound Weeks Gestation 0 Eighteen To Twenty Week Qamar Update Ultra Sound Date Fundal Height At Umbil Quickening Date Ultra Sound Latest Weeks Gestation Final Qamar Confirmed By Final Qamar Confirmed Date Final Qamar Date Ultra Sound Latest Days Gestation 0 0 Menstrual History Last Menstrual Date Menses Monthly On Bcp Conception Prior Menses Frequency Hcg Plus Date Menarche Onset Age Delivery Information Delivery Date Delivery Type Labor Anesthesia Weeks Gestation Incision Type Labor Labor Length Hrs Delivered By Post Complications Tubal Sterilization Discharge Date Comments 4 39 Discharge Information Feeding Method Contraceptive Method Maternal HG B and HCT Levels Ob Episode Information Episode Created Date Number of Fetuses Patient Bloodtype Patient rh Status Prepregnancy Weight lbs Domestic Partner Domestic Partner Phone Father Name Cleaning Attendant Status 07/18/19 21 1 CLOSED Fetus Data First Name Last Name Admitted to NICU Weight (g) Sex Living Outcome Pediatric Complications Fetus ID Race Codes Race Delivery Type , Spontane ous 7366 Qamar Calculation Initial Qmaar Date Initial Exam Date Initial Exam Provider Initial Ultrasound Date Last Menstrual Period Date Ultra Sound Weeks Gestation 0 Eighteen To Twenty Week Qamar Update Ultra Sound Date Fundal Height At Umbil Quickening Date Ultra Sound Latest Weeks Gestation Final Qamar Confirmed By Final Qamar Confirmed Date Final Qamar Date Ultra Sound Latest Days Gestation 0 0 Menstrual History Last Menstrual Date Menses Monthly On Bcp Conception Prior Menses Frequency Hcg Plus Date Menarche Onset Age Delivery Information Delivery Date Delivery Type Labor Anesthesia Weeks Gestation Incision Type Labor Labor Length Hrs Delivered By Post Complications Tubal Sterilization Discharge Date Comments 9 Discharge Information Feeding Method Contraceptive Method Maternal HG B and HCT Levels Ob Episode Information Episode Created Date Number of Fetuses Patient Bloodtype Patient rh Status Prepregnancy Weight lbs Domestic Partner Domestic Partner Phone Father Name Cleaning Attendant Status 07/18/19 21 1 CLOSED Fetus Data First Name Last Name Admitted to NICU Weight (g) Sex Living Outcome Pediatric Complications Fetus ID Race Codes Race Delivery Type 4082.32 8 F Full Term 7369 Primary Qamar Calculation Initial Qamar Date Initial Exam Date Initial Exam Provider Initial Ultrasound Date Last Menstrual Period Date Ultra Sound Weeks Gestation 0 Eighteen To Twenty Week Qamar Update Ultra Sound Date Fundal Height At Umbil Quickening Date Ultra Sound Latest Weeks Gestation Final Qamar Confirmed By Final Qamar Confirmed Date Final Qamar Date Ultra Sound Latest Days Gestation 0 0 Menstrual History Last Menstrual Date Menses Monthly On Bcp Conception Prior Menses Frequency Hcg Plus Date Menarche Onset Age Delivery Information Delivery Date Delivery Type Labor Anesthesia Weeks Gestation Incision Type Labor Labor Length Hrs Delivered By Post Complications Tubal Sterilization Discharge Date Comments 1 39 Discharge Information Feeding Method Contraceptive Method Maternal HG B and HCT Levels Ob Episode Information Episode Created Date Number of Fetuses Patient Bloodtype Patient rh Status Prepregnancy Weight lbs Domestic Partner Domestic Partner Phone Father Name Cleaning Attendant Status 07/18/19 21 1 CLOSED Fetus Data First Name Last Name Admitted to NICU Weight (g) Sex Living Outcome Pediatric Complications Fetus ID Race Codes Race Delivery Type 2267.96 M Full Term 7367 Repeat Qamar Calculation Initial Qamar Date Initial Exam Date Initial Exam Provider Initial Ultrasound Date Last Menstrual Period Date Ultra Sound Weeks Gestation 0 Eighteen To Twenty Week Qamar Update Ultra Sound Date Fundal Height At Umbil Quickening Date Ultra Sound Latest Weeks Gestation Final Qamar Confirmed By Final Qamar Confirmed Date Final Qamar Date Ultra Sound Latest Days Gestation 0 0 Menstrual History Last Menstrual Date Menses Monthly On Bcp Conception Prior Menses Frequency Hcg Plus Date Menarche Onset Age Delivery Information Delivery Date Delivery Type Labor Anesthesia Weeks Gestation Incision Type Labor Labor Length Hrs Delivered By Post Complications Tubal Sterilization Discharge Date Comments 8 39 Discharge Information Feeding Method Contraceptive Method Maternal HG B and HCT Levels
--- OUTSIDE RECORDS SUMMARY | 2024-10-16 14:15 | XMS_ITS | Data Portability ---
Author Organization [facility], Main Office Address [address] [place] [address] Care Team Providers Care Caregiver Services Home Name Role Phone NEIL LEE Primary Care Provider NEIL LEE Referring Provider [phone] Assessment Encounter Date Assessment Date Assessment LastModified by Organization Details LastModified Time 04/19/2023 04/19/2023 This note is dictated and transcribed by [employer]. Associate Chemist variances may occur. Despite proofreading, typographical errors may occur. [email or web address] Not available 04/19/2023 09:43:36 Plan of Treatment Reminders Order Date Submit Date Provider Last Modified By Organization Details Last Modified Time Details Appointments None recorded. Lab vitamin D, 25-hydroxy, total, serum 2023 024 [email or web address] [facility], [address] [facility], [facility], [place], [address], 4 08:08:53 CBC w/ auto diff 2023 024 [email or web address] [facility], [address] [facility] [facility], [facility], [place], [address], 4 08:08:53 CMP, serum or plasma 2023 024 [email or web address] [facility], [address] [facility] [facility], [facility], [place], [address], 4 08:08:53 TSH, serum or plasma 2023 024 [email or web address] [facility], [address] [facility] [facility], [facility], [place], [address], 4 08:08:53 vitamin D3, 25-hydroxy, serum 2022 023 [email or web address] Not available 3 08:21:09 lipid panel, serum 2022 023 [email or web address] Not available 3 08:21:08 BMP, serum or plasma 2022 023 [email or web address] Not available 3 08:21:08 Referral financial planning advisor referral 2022 023 [email or web address] Wilbert Nielson DPM, [address] [facility], [place], [address], 3 09:05:27 Procedures None recorded. Surgeries None recorded. Imaging CT, abdomen, w/o contrast - Please call pt to schedule 2023 024 [facility], [address] [place] [address] [address], [place], [address], 4 11:37:22 US, axilla - right axilla Please call pt to schedule 2023 024 [facility] ([facility] [address] [place] [address] [address], [place], [address], 4 11:39:42 Medication Orders prednisone 20 mg tablet 2024 025 [id number], [address], [place], [place], [id number], 5 10:14:48 Lidocaine Viscous 2 % mucosal solution 2024 025 [id number], [address], [place], [place], [id number], 5 10:14:48 Patient TargetsNo targets recorded. Patient InstructionsNo instructions recorded. Reason for Referral Disability Insurance Hearing Officer Referral for Buni on Referring Physician: Neil Lee, Family Medicine, Encounter Date: 02/03/2023 Results Created Date Observation Date Name Description Value Unit Range Abnormal Flag Note LastModifiedBy Organization Detail LastModifiedTime 06/07/20 24 06/08/2024 COMPR EHENS SHEMAR METAB OLIC PANEL glucose 107 mg/dL 65-99 high Fasti ng refer ence inter aly For someo ne witho ut known diabe caridad, a gluco se value betwe en 100 and 125 mg/dL is consi stent with predi abete s and shoul d be confi rmed with a follo w-up test. Not Available [facility] [address] [address] [place], [address], 06/08/2024 03:32:41 06/07/20 24 06/08/2024 COMPR EHENS SHEMAR METAB OLIC PANEL urea nitrogen (BUN) 19 mg/dL 7-25 normal Not Available [facility] [address] [place], [address], 06/08/2024 03:32:41 06/07/20 24 06/08/2024 COMPR EHENS SHEMAR METAB OLIC PANEL creatinine 0.89 mg/dL 0.50-1 .03 normal Not Available [facility] [address] [address] [place], [address], 06/08/2024 03:32:41 06/07/20 24 06/08/2024 COMPR EHENS SHEMAR METAB OLIC PANEL eGFR 75 mL/mi n/1.7 3m2 > or = 60 normal Not Available [facility] [address] [address] [place], [address], 06/08/2024 03:32:41 06/07/20 24 06/08/2024 COMPR EHENS SHEMAR METAB OLIC PANEL BUN/creatini ne ratio SEE NOTE: (calc ) 6-22 Not Repor irish: BUN and Creat inine are withi n refer ence range . Not Available [facility] [address] [address] [place], [address], 06/08/2024 03:32:41 06/07/20 24 06/08/2024 COMPR EHENS SHEMAR METAB OLIC PANEL sodium 139 mmol/ L 135-14 6 normal Not Available [address], [address], 06/08/2024 03:32:41 06/07/20 24 06/08/2024 COMPR EHENS SHEMAR METAB OLIC PANEL potassium 4.8 mmol/ L 3.5-5. 3 normal Not Available [address], [address], 06/08/2024 03:32:41 06/07/20 24 06/08/2024 COMPR EHENS SHEMAR METAB OLIC PANEL chloride 104 mmol/ L 98-110 normal Not Available [address], [address], 06/08/2024 03:32:41 06/07/20 24 06/08/2024 COMPR EHENS SHEMAR METAB OLIC PANEL carbon dioxide 27 mmol/ L 20-32 normal Not Available [address], [address], 06/08/2024 03:32:41 06/07/20 24 06/08/2024 COMPR EHENS SHEMAR METAB OLIC PANEL calcium 9.2 mg/dL 8.6-10 .4 normal Not Available [address], [address], 06/08/2024 03:32:41 06/07/20 24 06/08/2024 COMPR EHENS SHEMAR METAB OLIC PANEL protein, total 7.1 g/dL 6.1-8. 1 normal Not Available [address], [address], 06/08/2024 03:32:41 06/07/20 24 06/08/2024 COMPR EHENS SHEMAR METAB OLIC PANEL albumin 4.3 g/dL 3.6-5. 1 normal Not Available [address] [address] [place], [address], 06/08/2024 03:32:41 06/07/20 24 06/08/2024 COMPR EHENS SHEMAR METAB OLIC PANEL globulin 2.8 g/dL_ (calc ) 1.9-3. 7 normal Not Available [address] [address] [place], [address], 06/08/2024 03:32:41 06/07/20 24 06/08/2024 COMPR EHENS SHEMAR METAB OLIC PANEL albumin/glob ulin ratio 1.5 (calc ) 1.0-2. 5 normal Not Available [address] [address] [place], [address], 06/08/2024 03:32:41 06/07/20 24 06/08/2024 COMPR EHENS SHEMAR METAB OLIC PANEL bilirubin, total 0.5 mg/dL 0.2-1. 2 normal Not Available [address] [address] [place], [address], 06/08/2024 03:32:41 06/07/20 24 06/08/2024 COMPR EHENS SHEMAR METAB OLIC PANEL alkaline phosphatase 84 U/L 37-153 normal Not Available [address] [address] [place], [address], 06/08/2024 03:32:41 06/07/20 24 06/08/2024 COMPR EHENS SHEMAR METAB OLIC PANEL AST 28 U/L 10-35 normal Not Available [address], [address], 06/08/2024 03:32:41 06/07/20 24 06/08/2024 COMPR EHENS SHEMAR METAB OLIC PANEL ALT 23 U/L 6-29 normal Not Available [address] [address] [place], [address], 06/08/2024 03:32:41 06/07/20 24 06/08/2024 CBC (INCL UDES DIFF/ PLT) white blood cell count 6.1 thous and/u L 3.8-10 .8 normal Not Available [address], [address], 06/08/2024 03:32:42 06/07/20 24 06/08/2024 CBC (INCL UDES DIFF/ PLT) red blood cell count 4.28 jose guadalupe on/uL 3.80-5 .10 normal Not Available [address], [address], 06/08/2024 03:32:42 06/07/2006/08/2024 CBC (INCL UDES DIFF/ PLT) hemoglobin 13.4 g/dL 11.7-1 5.5 normal Not Available [address], [address], 06/08/2024 03:32:42 06/07/20 24 06/08/2024 CBC (INCL UDES DIFF/ PLT) hematocrit 41.5 % 35.0-4 5.0 normal Not Available [address], [address], 06/08/2024 03:32:42 06/07/2006/08/2024 CBC (INCL UDES DIFF/ PLT) MCV 97.0 fL 80.0-1 00.0 normal Not Available [address], [address], 06/08/2024 03:32:42 06/07/20 24 06/08/2024 CBC (INCL UDES DIFF/ PLT) MCH 31.3 pg 27.0-3 3.0 normal Not Available [address], [address], 06/08/2024 03:32:42 06/07/20 24 06/08/2024 CBC (INCL UDES DIFF/ PLT) MCHC 32.3 g/dL 32.0-3 6.0 normal For adult s, a sligh t decre ase in the calcu lated MCHC value (in the range of 30 to 32 g/dL) is most likel y not clini danitza signi fickaren t; steve er, it shoul d be inter prete d with cauti on in corre latio n with other red cell michelle eters and the patie nt's clini joseluis condi tion. Not Available [facility] [address], [address], 06/08/2024 03:32:42 06/07/2006/08/2024 CBC (INCL UDES DIFF/ PLT) RDW 11.6 % 11.0-1 5.0 normal Not Available [address], [address], 06/08/2024 03:32:42 06/07/20 24 06/08/2024 CBC (INCL UDES DIFF/ PLT) platelet count 240 thous and/u L 140-40 0 normal Not Available [facility] [address], [address], 06/08/2024 03:32:42 06/07/20 24 06/08/2024 CBC (INCL UDES DIFF/ PLT) MPV 11.7 fL 7.5-12 .5 normal Not Available [address], [address], 06/08/2024 03:32:42 06/07/20 24 06/08/2024 CBC (INCL UDES DIFF/ PLT) absolute neutrophils 3800 cells /uL 1500-7 800 normal Not Available [facility] [address], [address], 06/08/2024 03:32:42 06/07/20 24 06/08/2024 CBC (INCL UDES DIFF/ PLT) absolute lymphocytes 1562 cells /uL 850-39 00 normal Not Available [address], [address], 06/08/2024 03:32:42 06/07/20 24 06/08/2024 CBC (INCL UDES DIFF/ PLT) absolute monocytes 519 cells /uL 200-95 0 normal Not Available [facility] [address], [address], 06/08/2024 03:32:42 06/07/20 24 06/08/2024 CBC (INCL UDES DIFF/ PLT) absolute eosinophils 159 cells /uL 15-500 normal Not Available [facility] [address], [address], 06/08/2024 03:32:42 06/07/2006/08/2024 CBC (INCL UDES DIFF/ PLT) absolute basophils 61 cells /uL 0-200 normal Not Available [facility] [address], [address], 06/08/2024 03:32:42 06/07/20 24 06/08/2024 CBC (INCL UDES DIFF/ PLT) neutrophils 62.3 % normal Not Available [address], [address], 06/08/2024 03:32:42 06/07/20 24 06/08/2024 CBC (INCL UDES DIFF/ PLT) lymphocytes 25.6 % normal Not Available [facility] [address], [address], 06/08/2024 03:32:42 06/07/2006/08/2024 CBC (INCL UDES DIFF/ PLT) monocytes 8.5 % normal Not Available [facility] [address], [address], 06/08/2024 03:32:42 06/07/20 24 06/08/2024 CBC (INCL UDES DIFF/ PLT) eosinophils 2.6 % normal Not Available [facility] [address] [place], [address], 06/08/2024 03:32:42 06/07/20 24 06/08/2024 CBC (INCL UDES DIFF/ PLT) basophils 1.0 % normal Not Available [facility] [address] [address] [place], [address], 06/08/2024 03:32:42 06/07/20 24 06/08/2024 VITAM IN D,25- OH,TO SUMI,I A vitamin D,25-oh,tota l,ia 56 NG/mL 30-100 normal Vitam in D Statu s 25-OH Vitam in D: Defic iency : <20 ng/mL Insuf ficie ncy: 20 - 29 ng/mL Optim al: > or = 30 ng/mL For 25-OH Vitam in D testi ng on patie nts on D2-guevara pplem entat ion and patie nts for whom quant itati on of D2 and D3 fract ions is requi red, the [facility] eD(TM ) 25-OH VIT D, (D2,D 3), LC/MS /MS is recom tom d: order code 33145 (noy ents >2yrs ). See Note 1 Note 1 For addit ional infor andrea ball refer to http: //kat Flores stDia gnost ics.c om/fa q/FAQ 199 (This link is being provi ded for infor briana graham/ susanne alvarez purpo ses only. ) Not Available [facility] [address] [address] [place], [address], 06/08/2024 03:32:44 06/07/20 24 06/08/2024 TSH W/REF NIA TO FT4 TSH w/reflex to FT4 0.86 mIU/L 0.40-4 .50 normal Not Available [facility] [address] [address] [place], [address], 06/08/2024 03:32:45 07/17/19 25 07/17/2024 rapid strep group A, throa t STREP A negati ve Not Available [facility] [address], [place], [address], 07/17/2024 10:05:47 09/28/19 23 09/27/2022 MAMMO , scree vinod, digit al, bilat eral No observ ation record ed. [email or web address] [facility] [address], [place], [address], 09/28/2022 12:47:49 06/19/20 24 06/18/2024 US, axill a No observ ation record ed. [facility] [address], [place], [address], 06/23/2024 23:29:43 06/22/20 24 06/21/2024 CT, abdom en, w/o contr ast No observ ation record ed. [email or web address] [address], [place], [address], 06/23/2024 23:29:44 Result Notes None recorded. 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 73238030 Active Not Available [facility] 3 09:19:53 Localized, primary osteoarthr itis of the pelvic region and thigh 428863593 Active Not Available [facility] 3 09:19:53 Plantar fasciitis 240960446 Active Not Available [facility] 3 09:19:53 Lumbar spondylosi s 305954422 Active Not Available [facility] 3 09:19:53 Low back pain 685721598 Active Not Available [facility] 3 09:19:53 Pain in right foot 2340765895197 07 Active Not Available [facility] 3 09:19:54 Hip pain 93443255 Active Not Available [facility] 3 09:19:54 Verruca plantaris 70228618 Active Not Available [facility] 3 09:19:54 Hemorrhoid s 05269486 Active Not Available [facility] 3 09:19:54 Dyspareuni a 30177865 Active Not Available [facility] 3 09:19:54 Skin lesion 19877677 Active Not Available [facility] 3 09:19:54 Vitamin D deficiency 09086281 Active 2022 Neil Lee MD [address], [address], [place], [address] , [facility] 3 16:20:29 Bunion 661599475 Active 2022 Neil Lee MD [address], [address], [place], [address] , [facility] 3 16:21:21 Arthritis 0169294 Active 2022 Filomena winkler, [facility] 3 09:26:11 Peroneal tendinitis of right lower limb 4289702025475 09 Active 2022 Wilbert Nielson DPM [address], [address], [place], [address] , [facility] 3 09:43:27 Cough 53904165 Active 2023 Neil Lee MD [address], [address], [place], [address] , [facility] 4 10:01:50 Mass of axilla 800858836 Active 2023 SHANELLE Pearson [address], [address], [place], [address] , [place] [facility] [employer] [facility] 4 15:54:37 Soft mass of abdomen 963046057 Active 2023 SHANELLE Pearson [address], [address], [place], [address] , [place] [facility] [employer] [facility] 4 15:56:26 Sore throat 018340115 Active 2024 Mimi Sy RN null, [facility] [employer] [facility] 5 10:06:06 Problem Notes None recorded. Procedures Surgical History Date Name Laterality Status Provider Name and Address Organization Details Recorded Time section completed Not Available [facility] 08/25/2022 09:13:34 Imaging Results Imaging Date Name Status LastModified by Organiz ation Details LastModified Time 09/27/2022 MAMMO, screening, digital, bilateral completed [email or web address] [facility] [address], [place], [address], 09/28/2022 12:47:49 06/18/2024 US, axilla completed [email or web address] [facility] [address], [place], [address], 06/23/2024 23:29:43 06/21/2024 CT, abdomen, w/o contrast completed [place], [place], [address], 06/23/2024 23:29:44 Procedure Notes None recorded. Medical Equipment None Reported. Allergies No known drug allergies Medications Name Sig Start Date Stop Date Status Note LastModified by Organization Details LastModified Time cyclobenzap rine 10 mg tablet Take 1 tablet 3 times a day by oral route for 10 days. 03/21 completed Not Available Not Available Not Available Xylocaine with Epinephrine 2 %-1:100,000 injection solution 1 ml sc base of lesion 11/04 completed Not Available Not Available Not Available azithromyci n 250 mg tablet TAKE 2 TABLETS (500 MG) BY ORAL ROUTE ONCE DAILY FOR 1 DAY THEN 1 TABLET (250 MG) BY ORAL ROUTE ONCE DAILY FOR 4 DAYS 05/30 completed Not Available Not Available Not Available Lidocaine Viscous 2 % mucosal solution Take 15 mL every 3-4 hours by oral route. active Not Available Not Available No t Available benzonatate 200 mg capsule Take 1 capsule 3 times a day by oral route as needed for 10 days. 02/03 completed Not Available Not Available Not Available medroxyprog esterone 2.5 mg tablet Take 1 tablet every day by oral route. active Not Available Not Available No t Available prednisone 20 mg tablet Take 2 tablets every day by oral route for 5 days. active Not Available Not Available No t Available diclofenac sodium 75 mg tablet,bharat yed release Take 1 tablet twice a day by oral route as needed. 02/03 completed Not Available Not Available Not Available estradiol 0.5 mg tablet 1 po qday active Not Available Not Available No t Available estradiol 0.01% (0.1 mg/gram) vaginal cream 1 gram pv 3x per week active Not Available Not Available No t Available naproxen 500 mg tablet Take 1 tablet twice a day by oral route as needed for 30 days. 03/21 completed Not Available Not Available Not Available progesteron e micronized 100 mg capsule TAKE 1 CAPSULE BY MOUTH ONCE DAILY active Not Available Not Available No t Available Premarin 0.625 mg/gram vaginal cream APPLY 0.5 APPLICATO RFUL VAGINALLY TWICE A WEEK active Not Available Not Available No t Available conj estrogen-me droxyproges terone 0.3 mg-1.5 mg tablet Take 1 tablet every day by oral route. 03/15 completed Not Available Not Available Not Available Flucelvax Quad (PF) 60 mcg (15 mcg x 4)/0.5 mL IM syringe 03/15 completed Not Available Not Available Not Available Vitals Date Recorded Body height Body mass index (BMI) Body weight Body temperature Heart rate Oxygen saturation Oxygen saturation in Arterial blood by Pulse oximetry Systolic blood pressure Diastolic blood pressure Provider Name and Address Organization Details Last Updated DateTime 3 157.48 cm 18.8 kg/m2 51441.0 1 g 97.2 [degF] 78 /min 98 % 98 % 110 mm[Hg] 68 mm[Hg] Mimi Sy RN [facility] [employer] [facility] 3 16:09:48 Date Recorded Body height Body mass index (BMI) Body weight Provider Name and Address Organization Details Last Updated DateTime 04/19/2023 157.48 cm 18.8 kg/m2 22846.01 g Filomena Goode [facility] [employer] [facility] 04/19/2023 09:25:51 Date Recorded Heart rate Respiratory rate Oxygen saturation Oxygen saturation in Arterial blood by Pulse oximetry Systolic blood pressure Diastolic blood pressure Provider Name and Address Organization Details Last Updated DateTime 3 81 /min 14 /min 98 % 98 % 116 mm[Hg] 72 mm[Hg] Tatum Lewis [facility] [employer] [facility] 3 09:26:11 Date Recorded Body weight Body temperature Heart rate Oxygen saturation Oxygen saturation in Arterial blood by Pulse oximetry Systolic blood pressure Diastolic blood pressure Provider Name and Address Organization Details Last Updated DateTime 4 04438.4 2 g 96.8 [degF] 82 /min 98 % 98 % 120 mm[Hg] 64 mm[Hg] Mimi Sy RN [facility] [employer] [facility] 4 15:37:52 Date Recorded Body weight Body temperature Heart rate Oxygen saturation Oxygen saturation in Arterial blood by Pulse oximetry Systolic blood pressure Diastolic blood pressure Provider Name and Address Organization Details Last Updated DateTime 5 37378.0 1 g 96.2 [degF] 88 /min 97 % 97 % 136 mm[Hg] 80 mm[Hg] Mimi Sy RN [facility] [employer] [facility] 5 10:01:32 Social History Question Answer Notes LastModified by Organizat ion Details LastModified Time Tobacco Smoking Status Never Smoker Not Available [facility] 08/25/2022 09:13:10 What Is Your Level Of Alcohol Consumption? None [id number] Information not available 08/25/2022 What Was The Date Of Your Most Recent Tobacco Screening? 04/21/2021 [id number] Information not available 08/25/2022 Sex: Unknown Functional Status None recorded. Mental Status None recorded. Family History Relationship Description Onset Age of this Age Resolved Age Notes LastModified by Organization Details LastModified Time Father Hypertensive disorder [id number] Not available 08/25/2022 09:13:35 Father Family history of malignant neoplasm [email or web address] Not available 2022 09:26:36 Mother Family history of malignant neoplasm [email or web address] Not available 2022 09:26:37 Medical History Condition Response ARTHRITIS Y Gynecological HistoryNo gynecological history recorded. Obstetrics History GPAL:G 0 P 0 0 0 0 Immunizations Vaccine Type Date Status Note Provider Nam e and Address Organization Details Recorded Time Influenza, split virus, quadrivalent, PF 04/06/2019 completed Not Available [facility] 3 09:27:36 Influenza, split virus, quadrivalent, PF 04/21/2017 completed Not Available [facility] 3 09:27:36 Tdap 11/04/2016 completed Not Available [facility] 08/25/2022 09:27:36 Influenza, split virus, quadrivalent, PF 04/24/2014 completed Not Available [facility] 3 09:27:36 Influenza, split virus, quadrivalent, PF 04/06/2022 completed Not Available [facility] 3 09:27:36 Influenza, split virus, quadrivalent, PF 03/21/2018 completed Not Available [facility] 3 09:27:36 Past Encounters Encounter ID Performer Location Encounter Start Date Encounter Closed Date Diagnosis/Indication Diagnosis SNOMED-CT Code Diagnosis ICD10 Code Diagnosis Note [id number] [facility] [address] [place] [address] 12/17/2020 00:00:00 12/23/2020 13:53:25 [id number] [facility] [place] [address] [facility] [address] [place] [address] 04/21/2021 00:00:00 04/21/2021 11:05:06 [id number] [facility] [address] [facility] [address] [place] [address] 12/23/2021 00:00:00 12/23/2021 12:47:17 [id number] [facility] [address] [facility] [address] [place] [address] 03/15/2022 00:00:00 03/15/2022 11:31:55 [id number] [facility] Primary Care [facility] [address] [facility] [address] [place] [address] 04/06/2022 00:00:00 04/20/2022 08:52:11 [id number] Neil Lee MD [facility] Primary Care [facility] [address] [facility] [address] [place] [address] 02/03/2023 16:02:23 02/03/2023 16:42:08 Adult health examination 224714916 Z00.00 Z13.220 Z13.1 Sees shrinking machine operator for pap, mammogram and dexaShingr ix vaccine series recommende dFlu vaccine yearlyCovi d booster this fallChe fasting labsColono scopy age 51 was normal, repeat at 61 Vitamin D deficiency 347 [address]5320 E55.9 Bunion 928381596 M21.61 9 [id number] Wilbert Nielson DPM [facility] [place] [address] [facility], [facility] [address] [place] [address] 04/19/2023 09:20:52 04/19/2023 11:11:00 Pain in right foot [id number] 04029 M79.671 Pain sub 5th metatarsal basesecond umesh to the patient being skin and lack of fat under the 5th metatarsal educated on shoe gear and offloading Recommend new balance style shoe geardiscon tinue dress shoes without a foam base for supportrec ommend Powerstep [place]ir[place] orthoticsi f continues to be problemati c will require custom orthotics with offloading of the 5th metatarsal base Peroneal t endinitis of right lower limb [id number] 77652 M76.71 stretching and icing instructio ns reviewedFo llow-up as needed [id number] SHUKRI PearsonC [facility] Primary Care [facility] [address] [facility] [address] [place] [address] 05/30/2024 15:32:22 05/31/2024 09:51:57 Adult health examination [id number] Z00.00 Discussed medication compliance and routine follow up.Discuss ed healthy diet and routine exercise.Paul barrerawed vaccine records and made recommenda tions as needed.Enc ouraged annual eye and dental exams, as well as twice yearly dental cleanings. Will check screening labs as listed below. Vitamin D deficiency [id number] E55.9 Mass of axilla [id number] R22.2 mass of right axilla, has been present for years--now intermitte ntly tender Soft mass of abdomen [id number] R19.00 [id number] Eufemia Mcclure, LORENZO-C [facility] Primary Care [facility] [address] [place] [address] 07/17/2024 09:54:42 07/17/2024 10:19:43 Sore throat [id number] J02.9 Will treat as listed below.Noy ent educated on avoiding NSAIDs while taking Prednisone , patient may take Tylenol as needed.Dis cussed warm salt water gargles.Wi ll follow up as needed. Health Concerns Section Related Observation LastModified by Organization Detai ls LastModified Time None Recorded Concern Status LastModified by Organization Details LastModified Time None Recorded Advance Directives Directive None Recorded Payers Encounter Date Sequence Insurance Name Policy Number Policy Brito Covered Member ID Brito Member ID Guarantor Name 02/03/2023 1 [place] [id number] Yuki T Carantza [id number] 25 Yuki T Carantza 04/19/2023 1 [place] [id number] Yuki T Carantza [id number] 25 Yuki T Carantza 05/30/2024 1 [place] [id number] Yuki T Carantza [id number] 25 Yuki T Carantza 07/17/2024 1 [place] [id number] Yuki T Carantza [id number] 25 Yuki T Carantza Valentin Notes Date Note Type Note Provider Name and Address Organization Details Recorded Time 02/03/2023 text/html here for enzo fry, painful bunion on her foot Neil Lee MD [address] [facility], [facility] [address], [place], [address], [employer] 02/03/2023 16:30:21 04/19/2023 text/html . Patient is a 58-year-old female who presents the office with complaints of right 5th metatarsal base pain. Patient denies any injury to the foot. Patient states when she is standing or walking she has more pain. Patient states her pain level is 1/10 and denies any open wounds. Patient states she typically wears dress shoes and sandals. Patient was educated on condition and was recommended to change of shoe gear to alleviate pain and pressure to her foot. Patient denies any other complaints. Wilbert Nielson DPM [address], [place], [address], [employer] 04/19/2023 09:45:31 05/30/2024 text/html Patient is a 59 year old female that presents to the office for annual wellness. Patient reports a strange sensation to base of right shoulder blade. Patient denies pain, reports it more of a spasm. Patient reports intermittent decreased ROM. Patient also reports lump in right armpit that has been present for several years. Patient was told it was muscle build-up on her bone however she doesn't agree with that since it has gotten bigger and has become tender over the last couple of months. Patient also requesting imaging of her abdomen for possible hernia. Patient reports soft mass to right of umbilicus that she notices most when she is working out. Patient reports sometimes it feels like it is moving, is not tender or painful. amep-[id number] es [employer], UTD this yearMammogram-sees [employer], UTD this yearColonoscopy- due [id number] eclinesTdap- UTD 2017Shingles-UTD SHANELLE Pearson [address], [place], [address], [employer] 06/05/2024 09:55:28 07/17/2024 text/html Patient is a 59 year old female that presents to the office for sore throat and bilateral ear pressure. Patient reports on Tuesday night she started with sore throat, bilateral ear pressure, subjective fevers, body aches and chills. Patient reports fevers, body aches and chills resolved after 24 hours but sore throat and ear pressure remain. Patient reports sore throat is tolerable during the day but is unbearable at night making it difficult to eat. Patient reports difficulty eating and drinking due to pain. Patient reports a coworker was sick last week but is unsure if she was diagnosed with anything. Patient reports she has been treating with cough drops which have not been helpful. Patient denies chest pain, shortness of breath, nausea vomiting and diarrhea. Eufemia Mcclure, LORENZO-C [address] [facility] [address], [place], [address], [place] [facility] [place] [employer] 07/17/2024 11:25:20 OBGyn Episode No OBEpisode recorded.
--- OUTSIDE RECORDS SUMMARY | 2024-10-16 14:15 | XMS_ITS | Continuity of Care Document ---
Author Organization [facility] Address [address] [place] [address] Insurance Providers Payer Plan Claims Address Claims Phone Policy Number Group Number Relation Employer Guarantor Name Guarantor Guarantor Address Guarantor Phone [employer] [address], [place] [address] tel:[phone] Self ivon tellez [address] [place] [id number] Problems Condition ICD9 code ICD10 code SNOMED code Start Date End Date S tatus Encounter for screening for other metabolic disorders Z13.228 Results No Results Allergies, adverse reactions, alerts No known allergies and adverse reactions Medications No administered medications reported Vital Signs No vital signs reported Social History No smoking Hx information available
--- OUTSIDE RECORDS SUMMARY | 2024-10-16 14:15 | XMS_ITS | Clinical Summary ---
Author Organization [facility] Address [facility] [place] [address] Care Team Providers Care Professional Services Specialist Name Role Phone Irma Lee MD Primary Care Provider + Irma Lee MD Unavailable [phone] Allergies No known active allergies Medications influenza quadrivalent [id number] (Flucelvax Quad , PF,) 60 mcg (15 mcg x 4)/0.5 mL syringe Flucelvax Quad (PF) 60 mcg (15 mcg x 4)/0.5 mL IM syringe Active estrogens, conjugated,-medro xyPROGESTERone (PREMPRO) 0.3-1.5 mg per tablet Prempro 0.3 mg-1.5 mg tablet Active Active Problems No known active problems Surgical History Surgery Date Site/Laterality Comments SECTION 1990, 1993, 1997 Medical History Medical History Date Comments Arthritis Family History Medical History Relation Name Comments Colon cancer Father Relation Name Status Comments Father Social History Tobacco Use Types Packs/Day Years Used Date Smoking Tobacco: Never Personal Safety Answer Date Recorded Getting School Help Needed Not on file 09/10 Comments Unknown Sex and Gender Information Value Date Recorded Sex Assigned at Not on file Legal Sex Female 2:57 PM [employer] Gender Identity Not on file Sexual Orientation Not on file Obstetrics History Last Filed Vital Signs Vital Sign Reading [...] Plan of Treatment Not on file Insurance [employer] OOS Care Teams Professional Services Specialist Relationship Specialty Start Date End Date Irma Lee MD [address] [place] [address] PCP - General Family Medicine 07/28/20 Irma Lee MD [address] [place] [address] Family Medicine 07/28/20
== END 2024-10-16 12:45 | disposition home or self-care (01) ==
PROVIDERS: PCP Nurse Practitioner Family; Visit Provider Obstetrics & Gynecology
DX: M81.0 Age-related osteoporosis without current pathological fracture (principal); M85.89 Other specified disorders of bone density and structure, multiple sites; Z78.0 Asymptomatic menopausal state
CPT/HCPCS: 77080

== ENCOUNTER 2025-03-08 13:31 | Outpatient (CLI) | payer BC, SELFPAY ==
--- NOTE | ~2025-03-08 | MM_ITS ---
EXAMINATION: MM screening [facility] BI w pool HISTORY: Screening TECHNIQUE: Craniocaudal and mediolateral oblique 3-D tomosynthesis images were obtained and synthetic 2-D images were generated. CAD analysis was submitted and interpreted. COMPARISON: Mammograms from 12/16/2023, 09/27/2022 and 07/20/2021 BREAST PARENCHYMAL COMPOSITION: The breasts are heterogeneously dense, which may obscure small masses. FINDINGS: There is no evidence of suspicious mass, calcification, or architectural distortion in either breast to suggest malignancy. There has been no significant interval change. IMPRESSION: 1. No mammographic evidence of malignancy. Recommend routine screening mammography in one year. BI-RADS Category 1: Negative Reviewed, dictated and finalized at location Q. IMPRESSION: 1. No mammographic evidence of malignancy. Recommend routine screening mammogra phy in one year. BI-RADS Category 1: Negative
== END 2025-03-08 13:32 | disposition home or self-care (01) ==
PROVIDERS: PCP Obstetrics & Gynecology; Visit Provider Nurse Practitioner Family
DX: Z12.31 Encounter for screening mammogram for malignant neoplasm of breast (principal)
CPT/HCPCS: 77063; 77067